=== PATIENT | female | born 1935 | race Caucasian/White ===

== ENCOUNTER 2018-04-25 12:08 | Day surgery (SDC) | payer MEDICARE ==
[2018-04-22 12:01] LABS: BASOPHILS # (AUTO) 0.03 x10^3/uL (0-0.1); BASOPHILS % (AUTO) 1 % (0-1); EOSINOPHILS # (AUTO) 0.17 x10^3/uL (0-0.4); EOSINOPHILS % (AUTO) 3 % (1-7); LYMPHOCYTES # (AUTO) 1.69 x10^3/uL (1-3.4); LYMPHOCYTES % (AUTO) 33 % (22-44); MD NO; MEAN CORPUSCULAR HEMOGLOBIN 31.9 pg (27.0-34.8); MEAN CORPUSCULAR HGB CONC 33.5 g/dL (32.4-35.8); MEAN CORPUSCULAR VOLUME 95.2 fL (80-100); MEAN PLATELET VOLUME 6.4 fL (7.4-10.4); MONOCYTES # (AUTO) 0.32 x10^3/uL (0.2-0.8); MONOCYTES % (AUTO) 6 % (2-9); NEUTROPHILS # (AUTO) 2.86 x10^3/uL (1.8-6.8); NEUTROPHILS % (AUTO) 56 % (42-75); PLATELET COUNT 363 x10^3/uL (130-400); RED BLOOD COUNT 2.91 x10^6/uL (3.82-5.3); RED CELL DISTRIBUTION WIDTH 17.5 % (9.6-15.2)
[~2018-04-25] VITALS: Ht 167.6 cm; Wt 68.8 kg
[~2018-04-25 12:08] MED LIST: ASPI-496 PO; CHOL200074 PO; LACT1CAP35 PO; LEVO100T5 PO; MULT-662 PO; VITA400C14 PO
[2018-04-25] MEDS ORDERED: LACTATED RINGERS 1,000 ML IV SCH ×2 (12:31→12:44)
[2018-04-25 13:07] VITALS: BP 125/77
[2018-04-25] MEDS ORDERED: FENTANYL PF 100 MCG/2ML ONE (14:00)
[2018-04-25] MEDS ORDERED: MIDAZOLAM 1 MG/ML, 2ML ONE (14:00)
[2018-04-25] MEDS ORDERED: OXYcodone 5 MG/5 ML ORAL.SOL UDC ONE (15:13)
[2018-04-25] MEDS ORDERED: ONDANSETRON 2MG/ML, 2ML ONE (15:32)
[2018-04-25] MEDS ORDERED: DEXAMETHASONE 4 MG/ML, 1ML ONE (15:32)
[2018-04-25] MEDS ORDERED: PROPOFOL 10 MG/ML, 20ML ONE (15:32)
[2018-04-25] MEDS ORDERED: ALBUTEROL SULFATE 2.5 MG/3 ML NPPB PRN (16:00)
[2018-04-25] MEDS ORDERED: LABETALOL 5MG/ML, 20ML IV PRN (16:00)
[2018-04-25] MEDS ORDERED: ACETAMINOPHEN 325 MG TABLET PO PRN (16:00)
[2018-04-25] MEDS ORDERED: FENTANYL PF 100 MCG/2ML IV PRN (16:00)
[2018-04-25] MEDS ORDERED: HYDROmorphone 1 MG/ML, 1ML IV PRN (16:00)
[2018-04-25] MEDS ORDERED: OXYcodone 5 MG/5 ML ORAL.SOL UDC PO PRN (16:00)
[2018-04-25] MEDS ORDERED: ONDANSETRON 2MG/ML, 2ML IV PRN (16:00)
[2018-04-25] MEDS ORDERED: PROMETHAZINE 25 MG/ML, 1ML IV PRN (16:00)
[2018-04-25] MEDS ORDERED: HYDROcodone/APAP 7.5-325MG/15ML UDC PO PRN (16:00)
[2018-04-25] MEDS ORDERED: MIDAZOLAM 1 MG/ML, 2ML IV PRN (16:00)
[2018-04-25] MEDS ORDERED: hydrALAzine 20 MG/ML, 1ML IV PRN (16:00)
[2018-04-25] MEDS ORDERED: EPHEDRINE 50 MG/ML, 1ML IVPush PRN (16:00)
== END 2018-04-25 17:30 | disposition home or self-care (01) ==
LOC: OUT 12:08
PROVIDERS: ATTEND Urology
DX: N13.1 Hydronephrosis with ureteral stricture, not elsewhere classified (principal); E03.9 Hypothyroidism, unspecified; E89.0 Postprocedural hypothyroidism; I10 Essential (primary) hypertension; Z98.890 Other specified postprocedural states; Z87.440 Personal history of urinary (tract) infections; Z87.891 Personal history of nicotine dependence; Z98.49 Cataract extraction status, unspecified eye; Z79.82 Long term (current) use of aspirin; Z79.899 Other long term (current) drug therapy
CPT/HCPCS: 36415; 52332; 74420; 85025; 93005; C1726; C1758; C2617; J1100; J2250; J2405; J2704; J3010

== ENCOUNTER 2021-02-21 10:06 | Day surgery (SDC) | payer MEDICARE ==
[~2021-02-21] VITALS: Ht 165.1 cm; Wt 82.1 kg
[2021-02-21] MEDS ORDERED: SOLI10TA7 PO (11:37)
[2021-02-21 11:40] VITALS: BP 120/74
[2021-02-21] MEDS ORDERED: OMNIPAQUE 350 MG/ML, 50 ML BOTTLE ONE (11:48)
[2021-02-21] MEDS ORDERED: CHLORHEXIDINE 15 ML UDC PO ONE (12:00)
[2021-02-21] MEDS ORDERED: LACTATED RINGERS 1,000 ML IV SCH (12:00)
[2021-02-21] MEDS ORDERED: LIDOCAINE-MPF 1%, 2ML ONE (12:23)
[2021-02-21] MEDS ORDERED: MEPERIDINE/PF 25MG/0.5ML IVPush PRN (12:30)
[2021-02-21] MEDS ORDERED: HYDROmorphone 1 MG/ML, 1ML INJ IVPush PRN (12:30)
[2021-02-21] MEDS ORDERED: HALOPERIDOL 5 MG/ML IV PRN (12:30)
[2021-02-21] MEDS ORDERED: hydrALAzine 20 MG/ML, 1ML IV PRN (12:30)
[2021-02-21] MEDS ORDERED: ACETAMINOPHEN 325 MG TABLET PO PRN (12:30)
[2021-02-21] MEDS ORDERED: FENTANYL PF 100 MCG/2ML IV PRN (12:30)
[2021-02-21] MEDS ORDERED: LABETALOL 5MG/ML, 20ML IV PRN (12:30)
[2021-02-21] MEDS ORDERED: PROMETHAZINE 25 MG/ML, 1ML IVPush PRN (12:30)
[2021-02-21] MEDS ORDERED: DIPHENHYDRAMINE 50 MG/ML, 1ML IVPush PRN (12:30)
[2021-02-21] MEDS ORDERED: LIDOCAINE 1%, 2ML INFIL ONE (12:30)
[2021-02-21] MEDS ORDERED: OXYcodone 5 MG/5 ML ORAL.SOL UDC PO PRN (12:30)
[2021-02-21] MEDS ORDERED: FENTANYL PF 100 MCG/2ML ONE (12:31)
[2021-02-21] MEDS ORDERED: EPHEDRINE 50 MG/ML, 1ML ONE (12:53)
[2021-02-21] MEDS ORDERED: PROPOFOL 10 MG/ML, 20ML ONE (13:19)
[2021-02-21] MEDS ORDERED: ONDANSETRON 2MG/ML, 2ML ONE (13:19)
[2021-02-21] MEDS ORDERED: CEFAZOLIN 1,000 MG ONE (13:19)
[2021-02-21] MEDS ORDERED: DEXAMETHASONE 4 MG/ML, 1ML ONE (13:19)
== END 2021-02-21 14:50 | disposition home or self-care (01) ==
LOC: OUT 10:06
PROVIDERS: ATTEND Urology
DX: N39.0 Urinary tract infection, site not specified (principal); N13.5 Crossing vessel and stricture of ureter without hydronephrosis; N31.8 Other neuromuscular dysfunction of bladder; E03.9 Hypothyroidism, unspecified; E78.2 Mixed hyperlipidemia; N18.4 Chronic kidney disease, stage 4 (severe); M85.88 Other specified disorders of bone density and structure, other site; Z87.891 Personal history of nicotine dependence; Z90.5 Acquired absence of kidney; Z20.822 Contact with and (suspected) exposure to COVID-19; Z79.82 Long term (current) use of aspirin; Z79.899 Other long term (current) drug therapy; Z98.890 Other specified postprocedural states
CPT/HCPCS: 51705; 52332; 87635; 93005; C1758; C2617; J0690; J1100; J2405; J2704; J3010; J7120; Q9967; 76000